=== PATIENT | male | born 1990 | race Caucasian/White ===

== ENCOUNTER 2021-12-20 00:07 | Emergency (ER) | payer BC, SELFPAY ==
--- NOTE | ~2021-12-20 | CT_ITS ---
EXAMINATION: CTA chest PE protocol DATE: 12/20/2021 05:24 INDICATION: Chest tightness TECHNIQUE: Computed tomography angiography (CTA) of the chest was performed with 100 mL Omnipaque-350 intravenous contrast timed to evaluate the pulmonary arteries. Coronal maximum intensity projection 3D-reconstructions were created by the technologist. The dose-length product (DLP) was 832.71 mGy-cm. Automated exposure control and iterative reconstruction technique were employed. COMPARISON: None. FINDINGS: The pulmonary arteries are well-opacified. No pulmonary embolism is identified. There is m ild dependent atelectasis. The lungs are free of focal airspace opacities. There is no pleural effusi on or pneumothorax. No pathologically enlarged thoracic lymph nodes are identified. The heart size is normal. Mild bilateral gynecomastia is noted. There is anterior fusion of the T11 and T12 vertebral bodies. IMPRESSION: 1. No pulmonary embolism or acute cardiopulmonary abnormality. Reviewed, dictated and finalized at location A.
--- NOTE | ~2021-12-20 | XR_ITS ---
EXAMINATION: XR chest 2V DATE: 12/20/2021 00:53 INDICATION: Chest pain TECHNIQUE: PA and lateral views of the chest are obtained. COMPARISON: None available FINDINGS: The lungs are free of acute opacities. There is no pleural effusion or pneumothorax. The ca rdiomediastinal silhouette is normal. The visualized bones and soft tissues are unremarkable. IMPRESSION: 1. No acute cardiopulmonary abnormality. Reviewed, dictated and finalized at location A.
[2021-12-20 00:08] VITALS: BP 154/80; PULSE 96; RESP 18; TEMP 36.6; O2SAT 100
[2021-12-20 00:14] VITALS: PULSE 93
--- NOTE | 2021-12-20 00:15 | ED.CHESTPAIN ---
HPI - Chest Pain General Chief Complaint: Chest Pain Stated Complaint: CHEST PAIN Source: RN notes reviewed History of Present Illness HPI narrative: Patient presents emergency department from home via EMS for chest pain. Patient states he was sleeping when he was woken from sleep with bilateral chest pain. Patient states is achy pressure feeling in his bilateral anterior chest socially with mild feelings of shortness of breath he states he went to bed feeling fine denies any fevers or chills abdominal pain nausea vomiting diarrhea or any other symptoms. Denies any previous cardiac history. States nothing makes the pain better or worse Related Data Allergies Allergy/AdvReac Type Severity Reaction Status Date / Time No Known Allergies Allergy Verified 12/20/21 00:16 Review of Systems Review of Systems: Gen.: Denies fevers or chills ENT: Denies congestion Respiratory: Ports shortness of breath CV: See HPI GI: Denies abdominal pain nausea, emesis or diarrhea Musculoskeletal: Denies back pain or muscle pain Neuro: Denies numbness, tingling, weakness or focal weakness Skin: Denies rash Except as documented, all other systems reviewed and negative [facility] Past Medical History Medical History (Updated 12/20/21 @ 06:37 by Rodrigo Elaine DO) Hypertension Psoriasis Social History Social History (Updated 12/20/21 @ 00:20 by Rodrigo Elaine DO) Smoking status: Never smoker Exam Narrative: APPEARANCE: No acute distress, nontoxic, resting in bed EYES: EOMI HEENT: Normocephalic, atraumatic, OMM RESPIRATORY: No respiratory distress Clear to auscultation bilaterally with no rhonchi wheezing or rales. CARDIOVASCULAR: Regular rate and rhythm without murmurs rubs or gallops. Chest: Tender palpation of bilateral anterior chest wall no swelling or ecchymosis ABDOMINAL: Soft, nontender, nondistended, no rebound or guarding MUSCULOSKELETAl: Moves all extremities. No clubbing, cyanosis or edema. NEURO: Awake and alert. Following commands, speech normal, no focal deficits SKIN:: Warm, dry. No rashes lesions or abrasions PSYCHIATRIC: Normal affect/mood, Course Course Emergency Course: Patient states chest pain is improved at this time Discussed with patient results of workup and diagnosis. Discussed need for follow-up with primary care, proper use of medication, and reasons to return to the emergency department. Patient understands and agrees to current treatment plan. Patient states he does have a history of hypertension and was on lisinopril 20 mg before in the past was not taken for the past 2 years patient was noted have mildly elevated blood pressure when initially arrived that has improved will refer to primary for further outpatient evaluation Vital Signs Vital signs: Vital Signs Temperature 98 F 12/20/21 00:08 Pulse Rate 96 12/20/21 00:08 Respiratory Rate 18 12/20/21 00:08 Blood Pressure 154/80 H 12/20/21 00:08 Pulse Oximetry 100 12/20/21 00:08 Temperature 98 F 12/20/21 00:08 Pulse Rate 82 12/20/21 03:43 Respiratory Rate 13 12/20/21 03:43 Blood Pressure 135/86 12/20/21 03:43 Pulse Oximetry 96 12/20/21 03:43 MDM - Chest Pain MDM Narrative Medical decision making narrative: Patient's EKGs and labs are without significant high risk changes. Cardiac risk factors reviewed. Patient is felt likely low risk for ACS and reasonable for further risk stratification testing as an outpatient. No pulmonary embolism aneurysm or pneumonia seen on CTA chest. Patient with 3 troponins in ED all negative patient is felt to be a reasonable candidate for continued evaluation as an outpatient Lab Data Result diagrams: 12/20/21 00:28 12/20/21 01:06 Labs: Lab Results 12/20/21 12/20/21 12/20/21 Range/Units 00:28 00:28 00:28 WBC 11.3 H (4.5-10.0) K/mm3 RBC 5.69 (4.6-6.20) M/mm3 Hgb 15.2 (14.0-18.0) g/dL Hct 46.2 (42.0-52.0) % MCV 81.2 (80-100
--- NOTE | 2021-12-20 00:18 | ECG_ITS ---
Measurements Intervals [place] Rate: 92 P: 46 PA: 151 QRS: 7 QRSD: 96 T: 48 QT: 333 QTc: 414 Interpretive Statements SINUS RHYTHM NORMAL ECG Electronically Signed On 12-20-2021 6:32:19 CDT by Adan Kwan D.O.
[2021-12-20] MEDS: KETOROLAC 30 MG/ML VIAL (*BKC) IV PUSH (00:29)
[2021-12-20 00:31] VITALS: BP 139/83; PULSE 90; RESP 12; O2SAT 96
[2021-12-20 00:33] LABS: Basophils Absolute Auto 0.1 K/mm3 (0.0-0.1); Basophils Percent Auto 0.4 % (0.2-1.2); Eosinophils Absolute Auto 0.4 K/mm3 (0-0.3); Eosinophils Percent Auto 3.8 % (0-4.4); Hematocrit 46.2 % (42.0-52.0); Hemoglobin 15.2 g/dL (14.0-18.0); Immature Granulocyte Absolute 0.06 K/mm3 (0.00-0.031); Immature Granulocyte Percent A 0.5 % (0-0.5); Lymphocytes Absolute Auto 3.36 K/mm3 (0.9-3.2); Lymphocytes Percent Auto 29.8 % (18.3-44.2); Mean Corpuscular HGB Conc 32.9 g/dl (32-36); Mean Corpuscular Hemoglobin 26.7 pg (26-34); Mean Corpuscular Volume 81.2 fl (80-100); Monocytes Absolute Auto 0.7 K/mm3 (0.1-0.6); Monocytes Percent Auto 6.1 % (2.6-8.5); Neutrophils Absolute Auto 6.7 K/mm3 (1.3-6.7); Neutrophils Percent Auto 59.4 % (45.5-73.1); Platelet Count Result 309 k/mm3 (150-375); Red Blood Count 5.69 M/mm3 (4.6-6.20); Red Cell Distribution Width 13.6 % (11.5-14.5); White Blood Count 11.3 K/mm3 (4.5-10.0)
[2021-12-20 00:44] LABS: Partial Thromboplastin Time 28.3 SECONDS (22.3-36.8); Prothrombin Time 12.3 Seconds (11.1-14.7)
[2021-12-20 00:50] LABS: D Dimer < 0.22 ug/mL (<0.48)
[2021-12-20 01:01] VITALS: BP 150/80; PULSE 91; RESP 17; O2SAT 97
[2021-12-20 01:14] LABS: Lipase 86 U/L (23-300)
[2021-12-20 01:15] LABS: Troponin I < 0.012 ng/mL (0.000-0.034)
[2021-12-20 01:24] LABS: Alanine Aminotransferase 57 U/L (6-50); Albumin Level 4.5 g/dL (3.5-5.1); Alkaline Phosphatase 67 U/L (38-126); Anion Gap 14 mmol/L (8-16); Aspartate Amino Transferase 37 U/L (17-59); Bilirubin,Total 0.4 mg/dL (0.2-1.3); Blood Urea Nitrogen 17 mg/dL (9-20); Calcium 9.4 mg/dL (8.4-10.2); Carbon Dioxide 23 mmol/L (22-30); Chloride 101 mmol/L (98-107); Estimated CRCL calculation 215 ml/min; Estimated Glomerular Filt Rate > 60; Glucose 204 mg/dL (65-110); Potassium 3.7 mmol/L (3.4-5.0); Sodium 138 mmol/L (137-145)
[2021-12-20 01:31] VITALS: BP 129/82; PULSE 92; RESP 15; O2SAT 96
[2021-12-20 03:43] VITALS: BP 135/86; PULSE 82; RESP 13; O2SAT 96
[2021-12-20 03:55] LABS: Troponin I < 0.012 ng/mL (0.000-0.034)
[2021-12-20] MEDS: MORPHINE SULFATE (*CRX) 2 MG/ML INJ IV PUSH (04:17)
[2021-12-20 06:33] LABS: Troponin I < 0.012 ng/mL (0.000-0.034)
== END 2021-12-20 07:22 | disposition home or self-care (01) ==
PROVIDERS: Emergency Provider Emergency Medicine
DX: R07.89 Other chest pain (principal)
CPT/HCPCS: 36415; 71046; 71275; 80053; 83690; 84484; 85025; 85380; 85610; 85730; 93005; 96374; 96375; 99284; A9270; J1885; J2270; Q9967

== ENCOUNTER 2022-02-23 16:02 | Emergency (ER) | payer BC, SELFPAY ==
--- NOTE | ~2022-02-23 | XR_ITS ---
EXAMINATION: XR chest 1V portable Exam Date/Time: 02/23/2022 16:40 CDT HISTORY: COUGH, SORE THROAT, HEADACHE, HTN Comparison: 12/20/2021. RESULT: Lines, tubes, and devices: None. Lungs and pleura: Clear. Cardiomediastinal silhouette: Stable. Other: No acute osseous or upper abdominal finding. IMPRESSION: No acute cardiopulmonary process. Reviewed, dictated and finalized at location K.
[2022-02-23 16:05] VITALS: BP 200/97; PULSE 78; RESP 16; TEMP 36.4; O2SAT 99
[2022-02-23 17:26] LABS: SARS-CoV-2 RNA PCR Negative
[2022-02-23] MEDS: ACETAMINOPHEN 500 MG TABLET 1000 MG PO (17:32)
[2022-02-23] MEDS: KETOROLAC 30 MG/ML VIAL (*BKC) IM (17:33)
--- NOTE | 2022-02-23 18:09 | ED.GENADULT ---
HPI - General Adult General Chief complaint: Unspecified Stated complaint: TINGLING BODY, SORE THROAT, BP ELEVATION,HEADACHE Time Seen by Provider: 02/23/22 16:30 History of Present Illness HPI narrative: 31-year-old male with history of hypertension on blood pressure medications presents because he has been having congestion, sore throat, cough, and a headache. He states that he took his blood pressure today and noticed that it was elevated, so came in. Denies any new numbness or tingling or weakness anywhere, no chest pain or difficulty breathing. No family history of dissection or aneurysm. Related Data Allergies Allergy/AdvReac Type Severity Reaction Status Date / Time No Known Allergies Allergy Verified 12/20/21 00:16 Review of Systems Review of Systems: CONST: No fever. HEENT: sore throat C/V: No chest pain RESP: No cough GI: No nausea or vomiting : No dysuria. M/S: No joint pain. SKIN: No rash. NEURO: Headache without focal weakness PSYCH: [No depression] [facility] Past Medical History Medical History Hypertension Psoriasis Social History Social History Smoking status: Never smoker Exam Narrative: EXAMINATION OF ORGAN SYSTEMS/BODY AREAS: Constitutional: Vital signs per nursing GENERAL:[No acute distress, non-toxic appearing.] Resting comfortably on room air. HEAD: Normal with no signs of head trauma. Symmetric facies EYES: EOMI, conjunctiva normal. ENT: Hearing grossly intact LUNGS: Nonlabored breathing. HEART: [Regular rate and rhythm] ABD: [Soft], nondistended and nontender EXT: Normal range of motion. Equal/symmetric radial and DP pulses bilaterally SKIN: Rash right elbow NEURO: [Alert and oriented x 3. No gross focal sensory or strength deficits.] Ambulating with steady gait. PSYCH: Normal affect Course Vital Signs Vital signs: Vital Signs Temperature 97.6 F 02/23/22 16:05 Pulse Rate 78 02/23/22 16:05 Respiratory Rate 16 02/23/22 16:05 Blood Pressure 200/97 H 02/23/22 16:05 Pulse Oximetry 99 02/23/22 16:05 Oxygen Delivery Room Air 02/23/22 16:05 Temperature 97.6 F 02/23/22 16:05 Pulse Rate 78 02/23/22 16:05 Respiratory Rate 16 02/23/22 16:05 Blood Pressure 200/97 H 02/23/22 16:05 Pulse Oximetry 99 02/23/22 16:05 Oxygen Delivery Room Air 02/23/22 16:05 Medical Decision Making MDM Narrative Medical decision making narrative: Patient presenting with hypertension. No signs or symptoms of end organ dysfunction; no chest pain or shortness of breath, neurological deficits, visual disturbance, oliguria, or symptoms of dissection/AAA. He does have a mild headache without any acute neurologic deficits and is overall well-appearing; after being treated for headache here, he did have improved symptoms, as well as improved blood pressure to 163/81. 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 We discussed lifestyle modifications including diet and exercise. I will start patient on amlodipine here and provide script for short course, patient expressed understanding of the instructions and strongly advised to follow-up with PMD for further management. Strict return precautions provided. Vital Signs Vital Signs: Vital Signs Temperature 97.6 F 02/23/22 16:05 Pulse Rate 78 02/23/22 16:05 Respiratory Rate 16 02/23/22 16:05 Blood Pressure 200/97 H 02/23/22 16:05 Pulse Oximetry 99 02/23/22 16:05 Oxygen Delivery Room Air 02/23/22 16:05 Temperature 97.6 F 02/23/22 16:05 Pulse Rate 78 02/23/22 16:05 Respiratory Rate 16 02/23/22 16:05 Blood Pressure 200/97 H 02/23/22 16:05 Pulse Oximetry 99 02/23/22 16:05 Oxygen Delivery Room Air 02/23/22 16:05 Lab Data Labs: Lab Results 02/23/22 Range/Units
== END 2022-02-23 18:24 | disposition home or self-care (01) ==
PROVIDERS: Emergency Provider Emergency Medicine
DX: I10 Essential (primary) hypertension (principal); R51.9 Headache, unspecified; Z20.822 Contact with and (suspected) exposure to COVID-19
CPT/HCPCS: 71045; 96372; 99283; A9270; C9803; J1885; U0003; U0005

== ENCOUNTER 2022-07-31 19:04 | Observation (INO) | payer BC, SELFPAY ==
--- NOTE | ~2022-07-31 | CT_ITS ---
EXAMINATION: CT brain wo con DATE: 07/31/2022 19:47 INDICATION: Confusion. Lightheadedness. TECHNIQUE: Computed tomography (CT) of the head was performed without intravenous contrast. The mA wa s adjusted according to patient size. Iterative reconstruction technique was employed. The dose-lengt h product was 681.00 mGy-cm. COMPARISON: None FINDINGS: There is no intracranial hemorrhage, acute infarction, or abnormal intracranial mass lesion . The ventricles are normal in size. There is mild mucosal thickening in the paranasal sinuses. The o rbits are normal. The mastoid air cells are normal. IMPRESSION: 1. Normal brain. Reviewed, dictated and finalized at location A. 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 Normal brain.
--- NOTE | ~2022-07-31 | MR_ITS ---
MRI of the brain Clinical History: Slurred speech Technique: Axial and sagittal T1-weighted images were acquired. These were followed by axial T2-weigh jossie, diffusion weighted, gradient, and FLAIR images. Following intravenous administration of 20 cc Mu ltiHance gadolinium, T1-weighted fat-sat imaging was performed in the axial and coronal planes. Findings: No abnormal signal seen in the brain parenchyma. No acute infarct, internal hemorrhage, or mass lesion. Ventricles and subarachnoid spaces are unremarkable. Orbits are unremarkable. There are small retenti on cysts or polyps in the bilateral maxillary sinuses. Paranasal sinuses and mastoid air cells are ot herwise clear. Major intracranial flow voids appear intact. Sagittal midline structures are intact. No abnormal postcontrast enhancement. IMPRESSION: No significant abnormality seen. Reviewed, dictated and finalized at [facility]. 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
--- NOTE | ~2022-07-31 | XR_ITS ---
EXAMINATION: XR chest 2V DATE: 07/31/2022 19:44 INDICATION: Confusion. Lightheadedness. TECHNIQUE: Frontal and lateral views of the chest were obtained. COMPARISON: Chest single view 02/23/2022, chest CT 12/20/2021 FINDINGS: There is no pneumonia, pleural effusion, or pneumothorax. The heart size is normal. There i s mild chronic anterior wedging of T11 and T12 vertebral bodies. IMPRESSION: 1. No acute cardiopulmonary disease. Reviewed, dictated and finalized at location A. 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
[2022-07-31 19:06] VITALS: BP 162/91; PULSE 102; RESP 18; TEMP 36.9; O2SAT 98
[2022-07-31 19:11] LABS: Glucose Point of Care 169 mg/dl (65-105)
--- NOTE | 2022-07-31 19:14 | ECG_ITS ---
Measurements Intervals [place] Rate: 79 P: 30 RI: 143 QRS: 15 QRSD: 97 T: 135 QT: 364 QTc: 418 Interpretive Statements SINUS RHYTHM NONSPECIFIC T-WAVE ABNORMALITY ABNORMAL ECG COMPARED TO ECG 12/20/2021 00:10:41 T-WAVE ABNORMALITY NOW PRESENT Electronically Signed On 08-01-2022 14:45:55 [employer] by Matt Antunez M.D.
--- NOTE | 2022-07-31 19:44 | ED.AMS ---
HPI - Altered Mental Status General Chief Complaint: Altered Mental Status Stated Complaint: CONFUSION FOR FEW HOURS Time Seen by Provider: 07/31/22 19:27 Source: patient and RN notes reviewed Mode of arrival: ambulatory Limitations: no limitations History of Present Illness HPI narrative: This is a 32 year old male with history of DM and hypertension who presents for evaluation of confusion. Patient states he did not sleep well last night. He left work early today because he did not feel right. He reports having tingling in his hands . He went home and he went to sleep around 2 pm and he woke up at 5 pm. He still did not feel right. He is also reporting issues finding his words. He reports his symptoms have improved. He reports left posterior headache. Denies chest pain, sob, nausea, vomiting, abdominal pain, weakness. He denies alcohol or drug use. Related Data Home Medications Medication Instructions Recorded Confirmed amlodipine 10 mg tablet 5 mg PO DAILY 08/01/22 08/01/22 atorvastatin 40 mg tablet 40 mg PO DAILY cholesterol 08/01/22 08/01/22 clobetasol 0.05 % topical cream 1 applic topical 2XW PRN Rash 08/01/22 08/01/22 metformin 500 mg tablet,extended mg PO 4XW 08/01/22 release 24 hr Allergies Allergy/AdvReac Type Severity Reaction Status Date / Time No Known Allergies Allergy Verified 12/20/21 00:16 Review of Systems Review of Systems: All systems reviewed & are unremarkable except as noted in HPI and below Constitutional: Constitutional: Reports fatigue and Denies fever(s) Eyes: Eyes: Denies blurry vision ENT: Denies nasal congestion and Denies sinus pressure Cardiovascular: Cardiovascular: Denies chest pain, Denies rapid heart rate, Denies leg edema and Denies dyspnea Respiratory: Respiratory: Denies hemoptysis and Denies dyspnea Gastrointestinal: Gastrointestinal: Denies abdominal pain and Denies melena Musculoskeletal: Musculoskeletal: Denies numbness Neurologic: Reports Abnormal speech present, Reports headache(s), Denies focal weakness and Reports numbness (in his hands) Endocrine: Endocrine: Reports fatigue PMFSH Past Medical History Medical History (Updated 08/01/22 @ 07:16 by Miryam Kebede MD) Diabetes mellitus Hypertension Psoriasis Family History Family History (Updated 08/01/22 @ 07:02 by Lucia Charles RN) Father Acute myocardial infarction Other Asthma Social History Social History (Updated 07/31/22 @ 19:48 by Miryam Kebede MD) Smoking status: Never smoker Alcohol intake: current Drinks per week: 3 Substance use: never Substance use type: does not use Lack of Transportation: No Lack of Food: Never True Current Housing: I Have Housing Concerned About Future Housing: No Difficulty Paying Gas/Electric Bills: No Difficulty Paying for Meds: No Currently Unemployed: No Education: High School Diploma/GED Difficulty w/ Childcare or Family Care: No Spiritual care concerns: No Exam Narrative: GENERAL: Well-appearing, well-nourished, and in no acute distress. HEAD: Normocephalic, atraumatic EYES: PERRLA and EOMI, conjunctiva clear without discharge EARS: TM's clear bilaterally without erythema or dullness NOSE: Nares clear, no rhinorrhea or epistaxis THROAT:Mucous membranes moist, Oropharynx normal without erythema, exudate, peritonsillar swelling or fluctuance NECK: Supple, without lymphadenopathy or mass RESPIRATORY: No respiratory distress, Airway patent, Respirations non-labored, Clear to auscultation without rales, rhonchi or wheeze HEART: Regular rate and rhythm. No murmur heard. Normal peripheral pulses. ABDOMEN: Soft, nontender, nondistended, normal active bowel sounds. No masses. No rebound or guarding, No organomegaly. EXTREMITIES: No edema, normal strength with full range of motion. SKIN: Warm, dry, normal color without rash NEURO: Alert and oriented x3. CN 2-12 grossly intact. No focal deficits. PSY
[2022-07-31 20:12] LABS: Basophils Percent Auto 0.3 % (0.2-1.2); Eosinophils Absolute Auto 0.3 K/mm3 (0-0.3); Eosinophils Percent Auto 1.9 % (0-4.4); Hematocrit 41.9 % (42.0-52.0); Hemoglobin 14.3 g/dL (14.0-18.0); Immature Granulocyte Absolute 0.05 K/mm3 (0.00-0.031); Immature Granulocyte Percent A 0.4 % (0-0.5); Lymphocytes Absolute Auto 2.22 K/mm3 (0.9-3.2); Lymphocytes Percent Auto 16.3 % (18.3-44.2); Mean Corpuscular HGB Conc 34.1 g/dl (32-36); Mean Corpuscular Hemoglobin 27.7 pg (26-34); Monocytes Absolute Auto 0.9 K/mm3 (0.1-0.6); Monocytes Percent Auto 6.6 % (2.6-8.5); Neutrophils Absolute Auto 10.1 K/mm3 (1.3-6.7); Neutrophils Percent Auto 74.5 % (45.5-73.1); Platelet Count Result 269 k/mm3 (150-375); Red Blood Count 5.17 M/mm3 (4.6-6.20); White Blood Count 13.6 K/mm3 (4.5-10.0)
[2022-07-31 20:13] LABS: Add Urine Microscopic? YES; Appearance Urine Clear (Clear); Bilirubin Urine Negative (Negative); Blood Urine Negative (Negative); Color Urine Yellow (Yellow); Glucose Urine UA Negative (Negative); Ketones Urine Negative (Negative); Leukocyte Esterase Ur Negative LEU/UL (Negative); Nitrate Urine Negative (Negative); Protein Urine Trace mg/dL (Negative); Specific Grav Ur <= 1.005 (1.001-1.035); Urobilinogen Urine 0.2 mg/dL (<2.0); pH Urine 6.5 (5.0-9.0)
[2022-07-31] MEDS: SODIUM CHLORIDE 0.9% IV 1,000 ML 999 ML IV CONT (20:15)
[2022-07-31 20:18] LABS: Bacteria Urine Trace /hpf; Mucus Urine Rare /lpf; RBC Urine 0-2 /hpf (0-2); Squamous Epithelial Cell Urine Rare /hpf (Few); WBC Urine 0-3 /hpf
[2022-07-31 20:23] LABS: Ethanol < 10 mg/dL (<10); INR 1.1; Partial Thromboplastin Time 28.6 SECONDS (22.3-36.8); Prothrombin Time 13.9 Seconds (11.1-14.7)
[2022-07-31 20:26] LABS: Alanine Aminotransferase 30 U/L (6-50); Albumin Level 4.8 g/dL (3.5-5.1); Alkaline Phosphatase 74 U/L (38-126); Anion Gap 13 mmol/L (8-16); Aspartate Amino Transferase 25 U/L (17-59); Bilirubin,Total 0.9 mg/dL (0.2-1.3); Blood Urea Nitrogen 6 mg/dL (9-20); Carbon Dioxide 35 mmol/L (22-30); Chloride 94 mmol/L (98-107); Estimated CRCL calculation 179 ml/min; Estimated Glomerular Filt Rate > 60; Glucose 172 mg/dL (65-110); Potassium 2.4 mmol/L (3.4-5.0); Sodium 142 mmol/L (137-145)
[2022-07-31 20:35] LABS: Troponin I < 0.012 ng/mL (0.000-0.034)
[2022-07-31 20:50] LABS: Influenza A QL RT-PCR Negative (Negative); Influenza B QL RT-PCR Negative (Negative); SARS-CoV-2 RNA PCR Negative
[2022-07-31 20:54] LABS: Alveolar/Arterial O2 Gradient 20.5 mmHg; Base Excess ABG 6.6 mEq/l (+/-2.0); Carboxyhemoglobin 1.5 % THb (0-2.0); Fractional Inspired Oxygen 21 %; HCO3 ABG 30.7 mEq/l (22.0-26.0); Methemoglobin ABG 0.3 %THb (0-1.5); Oxygen Content ABG 17.9 %vol (16.0-22.0); Oxygen Saturation ABG 96.4 % (95.0-100.0); Oxyhemoglobin 93.3 % THb (90.0-100.0); PCO2 ABG 42.1 mmHg (35.0-45.0); PO2 ABG 78.8 mmHg (80.0-100.0); PO2 FiO2 Ratio Arterial Blood 3.75 %; Reduced Hemoglobin 4.9 %THb (0-5.0); Total Hemoglobin 13.6 g/dL (12.0-18.0); pH ABG 7.481 (7.350-7.450)
[2022-07-31 20:55] LABS: Device ROOM AIR; Modified Allen's Test Pass; Site Drawn RIGHT RADIAL
[2022-07-31 20:56] LABS: Magnesium 0.3 mg/dL (1.6-2.3)
[2022-07-31 21:03] LABS: Amphetamine Screen Urine Negative (Negative); Barbiturate Screen Urine Negative (Negative); Benzodiazepines Screen Urine Negative (Negative); Cannabinoid Screen Urine Negative (Negative); Cocaine Screen Urine Negative (Negative); Methadone Screen Urine Negative (Negative); Opiate Screen Urine Negative (Negative); Phencyclidine Screen Urine Negative (Negative)
[2022-07-31] MEDS: POTASSIUM CHLORIDE 20 MEQ TABLET 40 MEQ PO (21:08)
[2022-07-31] MEDS: CALCIUM GLUCONATE 1,000 MG/10 ML VIAL 1000 MG IV PUSH (21:09)
[2022-07-31] MEDS: POTASSIUM CHLORIDE INJ 40 MEQ in SODIUM CHLORIDE 0.9% IV 500 ML 130 MEQ IVPB (21:32)
[2022-07-31 21:40] VITALS: BP 161/80; PULSE 79; RESP 18; O2SAT 98
--- NOTE | 2022-07-31 22:41 | PM.IMHP ---
H&P: HPI History of Present Illness Date/Time: 07/31/22 22:41 Chief Complaint: Confusion Narrative: This is a 32-year-old male with past medical history significant for hypertension, dyslipidemia, type 2 diabetes mellitus, psoriasis. Patient presents to the emergency room due to complaints of feeling foggy, confused. Patient has had roughly a 15 lb weight loss which has been intentional he has been participating in cardio 1 hour a day plus keto diet. Denies any fevers, rigors, chills, nausea, vomiting, diarrhea, vision changes, has a slight headache he was feeling tingling in bilateral hands. Preliminary workup has been essentially non revealing. A potassium level was 2.4. A CT of the head was reported as: FINDINGS: There is no intracranial hemorrhage, acute infarction, or abnormal intracranial mass lesion. The ventricles are normal in size. There is mild mucosal thickening in the paranasal sinuses. The orbits are normal. The mastoid air cells are normal. IMPRESSION: 1. Normal brain. A chest x-ray was reported as FINDINGS: There is no pneumonia, pleural effusion, or pneumothorax. The heart size is normal. There is mild chronic anterior wedging of T11 and T12 vertebral bodies. IMPRESSION: 1. No acute cardiopulmonary disease. Review of Systems Review of Systems: Confusion, light headache, lightheaded Constitutional: Constitutional: Denies body ache(s), Denies chills, Denies fatigue, Denies fever(s), Denies lethargy, Denies malaise, Denies night sweats, Denies poor appetite, Denies weakness and Reports weight loss (Intentional) Eyes: Eyes: Denies change in vision ENT: Denies dysphagia, Denies vertigo, Reports dizziness, Reports headache(s), Denies neck pain, Denies odynophagia and Denies sore throat Cardiovascular: Cardiovascular: Denies chest pain, Denies irregular heart rhythm, Denies leg edema, Reports lightheadedness, Denies radiating jaw, neck or arm pain, Denies palpitations and Denies dyspnea Respiratory: Respiratory: Denies chest congestion, Denies cough, Denies pain on inspiration, Denies dyspnea, Denies dyspnea on exertion and Denies wheezing Gastrointestinal: Gastrointestinal: Denies abdominal pain, Denies dyspepsia, Denies heartburn, Denies diarrhea, Denies nausea and Denies vomiting Genitourinary: Genitourinary: Denies dysuria Musculoskeletal: Musculoskeletal: Reports back pain, Denies joint swelling, Denies neck pain and Denies numbness Integumentary/Breasts: Skin/Breast: Reports rash (Psoriatic patches) Neurologic: Reports confusion, Reports vertigo, Denies dizziness, Denies focal weakness, Denies radicular pain, Denies Sensory deficit (Neuro) and Reports tingling Psychiatric: Psychiatric: Reports no additional psychiatric complaints and Reports as per HPI Endocrine: Endocrine: Denies cold intolerance, Denies flushing, Denies heat intolerance, Denies polyphagia, Denies polydipsia and Denies palpitations Hematologic/Lymphatic: Hematologic/Lymphatic: Reports no additional hematologic/lymphatic complaints and Reports as per HPI Allergic/Immunologic: Allergic/Immunologic: Reports no additional allergic/immunologic complaints and Reports as per HPI PMFSH Past Medical History Medical History (Updated 08/01/22 @ 02:02 by Luan Dos Santos MD) Diabetes mellitus Hypertension Psoriasis Social History Social History (Updated 07/31/22 @ 19:48 by Miryam Kebede MD) Smoking status: Never smoker Alcohol intake: never Substance use: never Meds Home Medications and Allergies Home Medications Medication Instructions Recorded Confirmed Type famotidine 20 mg tablet (Pepcid) 20 mg PO DAILY #14 tabs 12/20/21 08/01/22 Rx ibuprofen 600 mg tablet (IBU) 600 mg PO Q6H PRN pain #20 tabs 12/20/21 08/01/22 Rx loratadine 10 mg tablet 10 mg PO DAILY #30 tabs 02/23/22 08/01/22 Rx amlodipine 10 mg tablet 5 mg PO DAILY 08/01/22 08/01/22 History atorvastatin 40 mg tablet 40 mg PO DAILY cholesterol 08/01/2207/05
[2022-08-01] VITALS (12 sets, daily range): BP systolic 131–143; BP diastolic 68–86; PULSE 74–88; RESP 16–20; TEMP 36.1–36.4; O2SAT 96–99; BMI 30.9
[2022-08-01] MEDS: MAGNESIUM SULF 4 GM/WATER100ML 4 GM/100 ML BAG IVPB (02:41)
[2022-08-01] MEDS: SODIUM CHLORIDE 0.9% IV 1,000 ML 125 ML IV CONT ×2 (02:58→11:22)
[2022-08-01 05:55] LABS: Basophils Percent Auto 0.2 % (0.2-1.2); Eosinophils Absolute Auto 0.2 K/mm3 (0-0.3); Eosinophils Percent Auto 2.4 % (0-4.4); Hematocrit 36.6 % (42.0-52.0); Hemoglobin 12.4 g/dL (14.0-18.0); Immature Granulocyte Absolute 0.03 K/mm3 (0.00-0.031); Immature Granulocyte Percent A 0.3 % (0-0.5); Lymphocytes Absolute Auto 3.48 K/mm3 (0.9-3.2); Lymphocytes Percent Auto 36.6 % (18.3-44.2); Mean Corpuscular HGB Conc 33.9 g/dl (32-36); Mean Corpuscular Hemoglobin 27.1 pg (26-34); Mean Corpuscular Volume 80.1 fl (80-100); Monocytes Absolute Auto 0.6 K/mm3 (0.1-0.6); Monocytes Percent Auto 5.8 % (2.6-8.5); Neutrophils Absolute Auto 5.2 K/mm3 (1.3-6.7); Neutrophils Percent Auto 54.7 % (45.5-73.1); Platelet Count Result 239 k/mm3 (150-375); Red Blood Count 4.57 M/mm3 (4.6-6.20); Red Cell Distribution Width 12.9 % (11.5-14.5); White Blood Count 9.5 K/mm3 (4.5-10.0)
[2022-08-01 06:18] LABS: Alanine Aminotransferase 24 U/L (6-50); Albumin Level 3.7 g/dL (3.5-5.1); Alkaline Phosphatase 64 U/L (38-126); Anion Gap 5 mmol/L (8-16); Aspartate Amino Transferase 20 U/L (17-59); Bilirubin,Total 0.6 mg/dL (0.2-1.3); Blood Urea Nitrogen 5 mg/dL (9-20); Calcium 6.5 mg/dL (8.4-10.2); Carbon Dioxide 33 mmol/L (22-30); Chloride 100 mmol/L (98-107); Estimated CRCL calculation 210 ml/min; Estimated Glomerular Filt Rate > 60; Glucose 164 mg/dL (65-110); Potassium 2.7 mmol/L (3.4-5.0); Sodium 138 mmol/L (137-145)
--- NOTE | 2022-08-01 06:42 | PC.NURSE ---
Pt admitted to 259 from ER at 2330 after experiencing tingling in hands , headache and word searching. Pt A/0 x3 calm cooperative and pleasant. No further symptoms when arrived to the unit. Neuro intact CT head - Tolerated po intake. IVF infusing. K rider infusing when arrived to the unit. Then followed mg rider. MRI of head/ neck ordered for today. Pt completed screening sheet. 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 Tele shows SR.
--- NOTE | 2022-08-01 07:49 | PM.IMPN ---
Progress Note: A&P Assessment and Plan (1) Altered mental status: Code(s): R41.82 - Altered mental status, unspecified Status: Acute Assessment and Plan: Admitted for altered mental status. Now resolved. CT of the head negative for acute findings. MRI of the brain negative for acute findings. Continue to monitor neuro status. Supportive care (2) Hypomagnesemia: Code(s): E83.42 - Hypomagnesemia Status: Acute Assessment and Plan: Magnesium level 0.3 on admission. Supplemented with 4 grams IV mag sulfate x1 in ED. Repeat magnesium 1.3. give additional 2 grams Mag sulfate IV x1. Repeat magnesium level in am. (3) Hypokalemia: Code(s): E87.6 - Hypokalemia Status: Acute Assessment and Plan: K 2.4 on admission. Magnesium 0.3. Supplemented with 40 mEQ PO & IV KCl in ED. 08/01 K 2.7, given additional 40 mEQ PO & IV KCl Monitor telemetry. Hold HCTZ. Continue Irbesartan. No vomiting or diarrhea. Repeat BMP in am. (4) Hypocalcemia: Code(s): E83.51 - Hypocalcemia Status: Acute Assessment and Plan: Calcium 6.7, albumin 4.5. Vitamin D 15.3. Likely secondary to hypomagnesemia and vitamin D deficiency Given 1 gram calcium gluconate IV Started Calcium/Vit D supplements BID (5) Hypertension: Qualifiers: Hypertension type: primary hypertension Qualified Code(s): I10 - Essential (primary) hypertension Code(s): I10 - Essential (primary) hypertension Status: Chronic Assessment and Plan: Chronic, stable. Continue irbesartan. Hold HCTZ d/t hypokalemia (6) Diabetes mellitus: Qualifiers: Diabetes mellitus type: type 2 Code(s): E11.9 - Type 2 diabetes mellitus without complications Status: Chronic Assessment and Plan: Chronic, stable. Hold metformin while inpatient. Glucose 164 mg/dL and stable. Continue diabetic diet Accu-checks AC/HS with low-dose novolog sliding scale. Hypoglycemia protocol (7) Psoriasis: Code(s): L40.9 - Psoriasis, unspecified Status: Chronic Assessment and Plan: Stable. Monitor. (8) Vitamin D deficiency: Code(s): E55.9 - Vitamin D deficiency, unspecified Status: Acute Assessment and Plan: Vitamin D 25-OH 15.3. Start D3 2000 IU daily Plan Consult hydrographical technical officer for safe weight loss diet counseling Time Spent With Patient Time with patient: 15 - 25 minutes Subjective Date/time seen: 08/01/22 07:49 Patient found lying in bed. He reports feeling better today. Paresthesia resolved. No chest pain, palpitations, tetany, abd pain, N/V/D. He has been eating a ketogenic diet to assist with weight loss and exercising. Review of Systems Review of Systems: All systems reviewed & are unremarkable except as noted in HPI and below Exam Narrative: General: No acute distress.? Well-developed adult male sitting up in bed. Mental Status/Psych: Awake, alert and oriented x3 with clear speech. Neutral mood and affect. Pleasant and cooperative. Skin: Skin fair, warm, dry and intact without rashes or lesions. Normal color for ethnicity. HEENT: Normocephalic. Sclera is non-icteric. EOM intact. PERRL. Grossly normal hearing. Oral mucosa pink and moist. Tongue midline. Oropharynx within normal limits. Neck: Supple. Thyroid without nodularity. Trachea midline. No JVD. Heart: S1 and S2 regular rate and rhythm. No murmurs, gallops, or rubs auscultated. NSR on telemetry. Chest: Respirations even and unlabored. Lung sounds are clear to auscultation in all lobes bilaterally without wheezes, rhonchi, or rales. Abdomen: Soft, round and non-tender to palpation.? Bowel sounds present in all 4 quadrants. Extremities:? Grossly normal ROM all extremities. No edema. Radial and dorsalis pedis pulses +2 bilaterally. Neurological: No focal deficits. Cranial nerves 2-12 grossly intact.?No facial droop. Hand grasps equal. Muscle strength 5/5
[2022-08-01 08:04] LABS: Glucose Point of Care 108 mg/dl (65-105)
[2022-08-01 08:30] LABS: Magnesium 1.3 mg/dL (1.6-2.3); Phosphorus 2.7 mg/dL (2.5-4.5)
[2022-08-01 08:48] LABS: Vitamin D 25 Hydroxy 15.3 ng/mL
[2022-08-01] MEDS: POTASSIUM CHLORIDE 20 MEQ TABLET 40 MEQ PO (09:30)
[2022-08-01] MEDS: CALCIUM GLUC 1,000 MG/NS 50 ML 1,000 MG/50 ML BAG 100 MG IVPB (09:30)
[2022-08-01] MEDS: FAMOTIDINE 20 MG TABLET PO (09:31)
[2022-08-01] MEDS: amLODIPine BESYLATE 5 MG TABLET PO (09:31)
[2022-08-01] MEDS: ENOXAPARIN 40 MG/0.4 ML SYRINGE SUB-Q (09:31)
[2022-08-01] MEDS: ATORVASTATIN 40 MG TABLET PO (09:31)
[2022-08-01] MEDS: MAGNESIUM SULFATE 3GM/D5W100ML 3 GM/100 ML BAG IVPB (11:22)
[2022-08-01 11:51] LABS: Glucose Point of Care 149 mg/dl (65-105)
[2022-08-01] MEDS: POTASSIUM CHLORIDE INJ 40 MEQ in SODIUM CHLORIDE 0.9% IV 500 ML 130 MEQ IVPB (14:16)
[2022-08-01 14:36] LABS: Anion Gap 10 mmol/L (8-16); Blood Urea Nitrogen 7 mg/dL (9-20); Calcium 6.9 mg/dL (8.4-10.2); Carbon Dioxide 29 mmol/L (22-30); Chloride 102 mmol/L (98-107); Estimated CRCL calculation 155 ml/min; Estimated Glomerular Filt Rate > 60; Glucose 262 mg/dL (65-110); Potassium 3.2 mmol/L (3.4-5.0); Sodium 141 mmol/L (137-145)
[2022-08-01 16:54] LABS: Glucose Point of Care 181 mg/dl (65-105)
[2022-08-01 21:54] LABS: Glucose Point of Care 292 mg/dl (65-105)
[2022-08-02] VITALS: PULSE 68
[2022-08-02 04:00] VITALS: PULSE 63
[2022-08-02 06:00] VITALS: BP 122/67; PULSE 71; RESP 20; TEMP 36.6; O2SAT 98
[2022-08-02 06:09] LABS: Anion Gap 6 mmol/L (8-16); Blood Urea Nitrogen 6 mg/dL (9-20); Calcium 6.4 mg/dL (8.4-10.2); Carbon Dioxide 26 mmol/L (22-30); Chloride 103 mmol/L (98-107); Estimated CRCL calculation 210 ml/min; Estimated Glomerular Filt Rate > 60; Glucose 176 mg/dL (65-110); Magnesium 1.4 mg/dL (1.6-2.3); Potassium 3.3 mmol/L (3.4-5.0); Sodium 135 mmol/L (137-145)
[2022-08-02 08:00] VITALS: PULSE 67
[2022-08-02 08:33] LABS: Glucose Point of Care 134 mg/dl (65-105)
[2022-08-02] MEDS: IRBESARTAN 150 MG TABLET PO (09:24)
[2022-08-02] MEDS: amLODIPine BESYLATE 5 MG TABLET PO (09:24)
[2022-08-02] MEDS: ATORVASTATIN 40 MG TABLET PO (09:24)
[2022-08-02] MEDS: ENOXAPARIN 40 MG/0.4 ML SYRINGE SUB-Q (09:24)
[2022-08-02] MEDS: SODIUM CHLORIDE 0.9% IV 1,000 ML 75 ML IV CONT (09:25)
[2022-08-02] MEDS: MAGNESIUM SULFATE 3GM/D5W100ML 3 GM/100 ML BAG IVPB (10:38)
[2022-08-02] MEDS: MULTIVITAMINS THERAPEUTIC TAB (*BKC) 1 TABLET PO (10:38)
[2022-08-02] MEDS: POTASSIUM CHLORIDE 20 MEQ TABLET 60 MEQ PO (10:38)
--- NOTE | 2022-08-02 11:08 | PM.DS ---
DS: Admitting Diagnosis Discharge Date 08/02/2022 1108 Admitting Diagnosis Altered mental status Hypokalemia DS: Discharge Diagnosis Discharge Diagnosis (1) Metabolic encephalopathy: Code(s): G93.41 - Metabolic encephalopathy Status: Acute Assessment and Plan: Admitted for altered mental status. Now resolved.? CT of the head negative for acute findings.? MRI of the brain negative for acute findings.? Neuro status remained at baseline (2) Hypomagnesemia: Code(s): E83.42 - Hypomagnesemia Status: Acute Assessment and Plan: Magnesium level 0.3 on admission. Supplemented with 4 grams IV mag sulfate x1 in ED. Repeat magnesium 1.3. and given additional 2 grams Mag sulfate IV x1. (3) Hypokalemia: Code(s): E87.6 - Hypokalemia Status: Acute Assessment and Plan: K 2.4 on admission. Magnesium 0.3. Supplemented with 40 mEQ PO & IV KCl in ED. 08/01 K 2.7, given additional 40 mEQ PO & IV KCl Monitored telemetry without ectopy. Held HCTZ. Continue Irbesartan. No vomiting or diarrhea. K 3.6 at discharge. (4) Hypocalcemia: Code(s): E83.51 - Hypocalcemia Status: Acute Assessment and Plan: Calcium 6.7, albumin 4.5. Vitamin D 15.3. Likely secondary to hypomagnesemia and vitamin D deficiency Given 1 gram calcium gluconate IV Started Calcium/Vit D supplements BID (5) Hypertension: Qualifiers: Hypertension type: primary hypertension Qualified Code(s): I10 - Essential (primary) hypertension Code(s): I10 - Essential (primary) hypertension Status: Chronic Assessment and Plan: Chronic, stable. Continue irbesartan. Held HCTZ d/t hypokalemia (6) Diabetes mellitus: Qualifiers: Diabetes mellitus type: type 2 Code(s): E11.9 - Type 2 diabetes mellitus without complications Status: Chronic Assessment and Plan: Chronic, stable. Hold metformin while inpatient. Glucose 164 mg/dL and stable. Continue diabetic diet Accu-checks AC/HS with low-dose novolog sliding scale. Hypoglycemia protocol Stable (7) Psoriasis: Code(s): L40.9 - Psoriasis, unspecified Status: Chronic Assessment and Plan: Stable. Monitor. (8) Vitamin D deficiency: Code(s): E55.9 - Vitamin D deficiency, unspecified Status: Acute Assessment and Plan: Vitamin D 25-OH 15.3. Started D3 2000 IU daily (9) Problems related to inappropriate diet and eating habits: Code(s): Z72.4 - Inappropriate diet and eating habits Status: Acute Assessment and Plan: Patient reported following keto diet and likely contributed to electrolyte disturbances along with HCTZ. Dietitian counsulted DS: Summary Hospital Course Reason for hospitalization: Confusion Hospital Course: Cm Sommers is a 32-year-old male with hypertension, dyslipidemia, type 2 diabetes mellitus, and psoriasis.? He presented to the emergency room due to complaints of feeling foggy and confused.? Patient has had approximately 15 lb weight loss which has been intentional from participating in [employer] 1 hour a day plus keto diet.?He denied fevers, rigors, chills, nausea, vomiting, diarrhea, or vision changes. He reported a slight headache and tingling in bilateral hands.? Preliminary workup showed potassium 2.4 and magnesium 0.3.? A CT of the head was negative for acute findings and chest x-ray was negative. He was given IV and PO potassium supplements, as well as IV magnesium sulfate replacement. Electrolytes were monitored and continued to be replaced until within normal limits. Vitamin D and calcium levels were also found to be low and supplements were given as above. HCTZ was held during hospitalization and at discharge. Dietitian was consulted for education on weight loss and risks of electrolyte disorders. He was discharged home in stable condition on Vitamin D/calcium, magnesium and potassium.
[2022-08-02 12:19] LABS: Glucose Point of Care 145 mg/dl (65-105)
[2022-08-02] MEDS: CALCIUM GLUC 1,000 MG/NS 50 ML 1,000 MG/50 ML BAG 100 MG IVPB (12:20)
[2022-08-06 15:03] LABS: Ionized Calcium 4.1 mg/dL (4.8-5.6)
== END 2022-08-02 13:50 | disposition home or self-care (01) ==
LOC: ANHED 19:35 → ANH2MED 23:37
PROVIDERS: Emergency Medicine; Nurse Practitioner Family; Admitting Provider Internal Medicine; Emergency Provider General Practice; Visit Provider Family Medicine
DX: G93.41 Metabolic encephalopathy (principal); E83.42 Hypomagnesemia; E87.6 Hypokalemia; E83.51 Hypocalcemia; I10 Essential (primary) hypertension; E11.9 Type 2 diabetes mellitus without complications; L40.9 Psoriasis, unspecified; Z72.4 Inappropriate diet and eating habits; R41.82 Altered mental status, unspecified; R47.89 Other speech disturbances; R51.9 Headache, unspecified; F10.90 Alcohol use, unspecified, uncomplicated; Y90.0 Blood alcohol level of less than 20 mg/100 ml; R42 Dizziness and giddiness; Z20.822 Contact with and (suspected) exposure to COVID-19; M48.54XA Collapsed vertebra, not elsewhere classified, thoracic region, initial encounter for fracture; E66.3 Overweight; Z68.30 Body mass index [BMI] 30.0-30.9, adult; E78.5 Hyperlipidemia, unspecified; R94.31 Abnormal electrocardiogram [ECG] [EKG]; Z79.1 Long term (current) use of non-steroidal anti-inflammatories (NSAID); Z79.84 Long term (current) use of oral hypoglycemic drugs; Z79.899 Other long term (current) drug therapy
CPT/HCPCS: 36415; 36600; 70450; 70553; 71046; 80048; 80053; 80307; 81001; 82306; 82330; 82375; 82805; 82948; 83050; 83735; 84100; 84443; 84484; 85025; 85610; 85730; 87636; 93005; 96361; 96365; 96366; 96367; 96372; 96374; 96375; 96376; 99285; A9270; A9577; G0378; J0610; J1650; J3475; J3480; J7030; J7040

== ENCOUNTER 2022-08-06 20:49 | Emergency (ER) | payer BC, SELFPAY ==
--- NOTE | ~2022-08-06 | XR_ITS ---
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 RESULT: Lines, tubes, and devices: None. Lungs and pleura: Clear. Cardiomediastinal silhouette: Stable. Other: No acute osseous or upper abdominal finding. IMPRESSION: No acute cardiopulmonary process. Reviewed, dictated and finalized at location K. S FORCE DEVELOPER
[2022-08-06 21:03] VITALS: BP 144/60; PULSE 120; RESP 16; TEMP 36.9; O2SAT 100
--- NOTE | 2022-08-06 21:07 | ECG_ITS ---
Measurements Intervals [place] Rate: 104 P: 43 IA: 135 QRS: 10 QRSD: 94 T: 63 QT: 342 QTc: 452 Interpretive Statements SINUS TACHYCARDIA DELAYED PRECORDIAL R/S TRANSITION NONSPECIFIC T-WAVE ABNORMALITY- HIGH LATERAL LEADS BORDERLINE ECG COMPARED TO ECG 07/31/2022 21:06:00 SINUS TACHYCARDIA NOW PRESENT Electronically Signed On 08-07-2022 7:58:13 CLINIC COORDINATOR by Adan Kwan D.O.
[2022-08-06 21:48] LABS: Basophils Percent Auto 0.3 % (0.2-1.2); Eosinophils Absolute Auto 0.3 K/mm3 (0-0.3); Eosinophils Percent Auto 2.8 % (0-4.4); Hematocrit 41.2 % (42.0-52.0); Hemoglobin 13.7 g/dL (14.0-18.0); Immature Granulocyte Absolute 0.06 K/mm3 (0.00-0.031); Immature Granulocyte Percent A 0.5 % (0-0.5); Lymphocytes Absolute Auto 2.44 K/mm3 (0.9-3.2); Lymphocytes Percent Auto 20.5 % (18.3-44.2); Mean Corpuscular HGB Conc 33.3 g/dl (32-36); Mean Corpuscular Hemoglobin 27.1 pg (26-34); Mean Corpuscular Volume 81.6 fl (80-100); Mean Platelet Volume 8.8 fl (7.4-10.4); Monocytes Absolute Auto 0.7 K/mm3 (0.1-0.6); Monocytes Percent Auto 5.8 % (2.6-8.5); Neutrophils Absolute Auto 8.3 K/mm3 (1.3-6.7); Neutrophils Percent Auto 70.1 % (45.5-73.1); Platelet Count Result 319 k/mm3 (150-375); Red Blood Count 5.05 M/mm3 (4.6-6.20); Red Cell Distribution Width 13.2 % (11.5-14.5); White Blood Count 11.9 K/mm3 (4.5-10.0)
[2022-08-06 21:58] LABS: Alanine Aminotransferase 27 U/L (6-50); Albumin Level 4.5 g/dL (3.5-5.1); Alkaline Phosphatase 98 U/L (38-126); Anion Gap 10 mmol/L (8-16); Aspartate Amino Transferase 25 U/L (17-59); Bilirubin,Total 0.5 mg/dL (0.2-1.3); Blood Urea Nitrogen 7 mg/dL (9-20); Calcium 8.1 mg/dL (8.4-10.2); Carbon Dioxide 27 mmol/L (22-30); Chloride 102 mmol/L (98-107); Estimated CRCL calculation 212 ml/min; Estimated Glomerular Filt Rate > 60; Glucose 260 mg/dL (65-110); Lipase 87 U/L (23-300); Potassium 3.6 mmol/L (3.4-5.0); Sodium 139 mmol/L (137-145)
[2022-08-06 22:01] LABS: Prothrombin Time 12.4 Seconds (11.1-14.7)
[2022-08-06 22:03] LABS: Partial Thromboplastin Time 26.8 SECONDS (22.3-36.8)
[2022-08-06 22:09] LABS: Troponin I < 0.012 ng/mL (0.000-0.034)
[2022-08-06] MEDS: ASPIRIN 81 MG CHEWABLE TABLET 324 MG PO (23:22)
--- NOTE | 2022-08-06 23:52 | ED.GENADULT ---
HPI - General Adult General Chief complaint: Arrhythmia/Palpitations Stated complaint: elevated HR Time Seen by Provider: 08/06/22 23:22 History of Present Illness HPI narrative: 32-year-old male presenting to the emergency department for evaluation of tachycardia. Patient states he had just gotten off work and was getting ready to eat dinner when he had the sensation of a rapid heart rate at approximately 7 PM. Patient states that he suspects he may be dehydrated. Patient denies any increased caffeine intake today. Patient does report smoking cigarettes. Patient also states he was having some anxiety prior to this. Patient does report a history of anxiety and is on medications for this. Patient was seen in the ED last week for hypokalemia. Related Data Home Medications Medication Instructions Recorded Confirmed amlodipine 10 mg tablet 5 mg PO DAILY 08/01/22 08/01/22 atorvastatin 40 mg tablet 40 mg PO DAILY cholesterol 08/01/22 08/01/22 clobetasol 0.05 % topical cream 1 applic topical 2XW PRN Rash 08/01/22 08/01/22 hydroxyzine pamoate 25 mg capsule 25 mg PO TID PRN Anxiety 08/01/22 08/01/22 metformin 500 mg tablet,extended 1,000 mg PO BID 08/01/22 08/01/22 release 24 hr Allergies Allergy/AdvReac Type Severity Reaction Status Date / Time No Known Allergies Allergy Verified 12/20/21 00:16 Review of Systems Review of Systems: CONSTITUTIONAL: Denies fever, chills, or sweats. EYES: Denies visual changes, redness, or discharge. ENT: Denies rhinorrhea, congestion, sore throat, or otalgia. CARDIOVASCULAR: See HPI RESPIRATORY: Denies cough or dyspnea. GASTROINTESTINAL: Denies abdominal pain, nausea, vomiting, or diarrhea. GENITOURINARY: Denies dysuria or hematuria. SKIN: Denies rash or itching. MUSCULOSKELETAL: Denies back pain, joint pain, or myalgia. NEUROLOGIC: Denies headache, numbness, or weakness. [facility] Past Medical History Medical History (Updated 08/06/22 @ 23:56 by Ab Casey MD) Diabetes mellitus Hypertension Psoriasis Family History Family History (Updated 08/01/22 @ 07:02 by Lucia Charles RN) Father Acute myocardial infarction Other Asthma Social History Social History (Updated 07/31/22 @ 19:48 by Miryam Kebede MD) Smoking status: Former smoker Tobacco type: cigarettes Second hand tobacco smoke exposure: No Smoking end date: 07/24/21 Alcohol intake: current Drinks per week: 3 Substance use: never Substance use type: does not use Lack of Transportation: No Lack of Food: Never True Current Housing: I Have Housing Concerned About Future Housing: No Difficulty Paying Gas/Electric Bills: No Difficulty Paying for Meds: No Currently Unemployed: No Education: High School Diploma/GED Difficulty w/ Childcare or Family Care: No Spiritual care concerns: No Exam Narrative: APPEARANCE: Well appearing, no pain, no distress, well-nourished. HEAD: normocephalic, atraumatic. EYES: PERRLA/EOMI, conjunctivae clear. NOSE: Normal no drainage NECK: Supple. No adenopathy, no masses. RESPIRATORY: Airway patent, respirations nonlabored. Clear to auscultation bilaterally, no rales, rhonchi, wheezing. CARDIOVASCULAR: Regular rate and rhythm without murmurs rubs or gallops. ABDOMINAL: Soft, nontender, nondistended, normal bowel sounds MUSCULOSKELETAL: Moves all extremities. Strength/ROM intact, No edema, No calf tenderness. NEURO: Alert. Cranial nerves II through XII intact. Grossly intact SKIN: Warm, dry. Normal Color Course Course Emergency Course: Arrival to the ED patient's pulse was 120. at rest even before the patient had rehydration the patient was no longer tachycardic. Patient was treated with 1 L of normal saline and heart rate further improved. Patient denies any chest pain or shortness of breath. Patient is afebrile but patient does have a leukocytosis of 11.9. Chest x-ray shows no acute cardiopulmonary normality. No significant electr
[2022-08-06] MEDS: SODIUM CHLORIDE 0.9% IV 1,000 ML 999 ML IV CONT (23:53)
[2022-08-07 00:31] VITALS: BP 111/72; PULSE 110; RESP 18; TEMP 36.7; O2SAT 100
--- NOTE | 2022-08-07 01:25 | PC.NURSE ---
Pt fluids complete and discontinued at 0130. IV site shows no signs of infection, infiltratio
--- NOTE | 2022-08-12 13:47 | PC.NURSE ---
LATE ENTRY This note is being entered to document information to the patient's record. The following information was omitted on [08/06/22], by [Pauline Roberts RN]. Ns stopped at 0045am
== END 2022-08-07 00:34 | disposition home or self-care (01) ==
PROVIDERS: Emergency Provider Emergency Medicine
DX: R00.0 Tachycardia, unspecified (principal); E11.9 Type 2 diabetes mellitus without complications; I10 Essential (primary) hypertension; Z87.891 Personal history of nicotine dependence; Z79.84 Long term (current) use of oral hypoglycemic drugs
CPT/HCPCS: 36415; 71046; 80053; 83690; 84484; 85025; 85610; 85730; 93005; 96360; 99284; A9270; J7030

== ENCOUNTER 2022-08-19 10:26 | Outpatient (CLI) | payer BC, SELFPAY ==
[2022-08-19 11:03] LABS: Anion Gap 12 mmol/L (8-16); Blood Urea Nitrogen 9 mg/dL (9-20); Calcium 8.6 mg/dL (8.4-10.2); Carbon Dioxide 30 mmol/L (22-30); Chloride 97 mmol/L (98-107); Estimated Glomerular Filt Rate > 60; Glucose 150 mg/dL (65-110); Magnesium 0.9 mg/dL (1.6-2.3); Potassium 3.8 mmol/L (3.4-5.0); Sodium 139 mmol/L (137-145)
== END 2022-08-19 10:27 | disposition home or self-care (01) ==
PROVIDERS: Visit Provider Nurse Practitioner Family
DX: E83.42 Hypomagnesemia (principal); E83.51 Hypocalcemia; E87.6 Hypokalemia
CPT/HCPCS: 36415; 80048; 83735